=== PATIENT | female | born 1950 | race Hispanic/Latino ===

== ENCOUNTER 2018-08-25 03:22 | Emergency (ER) | payer OTHER, MEDICARE ==
[~2018-08-25 03:22] MED LIST: AMLO2.5T4 PO; HYDR12.530 PO; LISI-617 PO; SERT50TA12 PO
[2018-08-25 04:13] LABS: EOSINOPHILS % (AUTO) 1.2 % (0.0-8.0); HEMATOCRIT 38.9 % (36-48); LYMPHOCYTES % (AUTO) 18.9 % (21.0-51.0); MEAN CORPUSCULAR HEMOGLOBIN 31.6 pg (27.0-33.0); MEAN CORPUSCULAR HGB CONC 34.6 g/dL (32.0-36.0); MEAN CORPUSCULAR VOLUME 91.3 fL (79-99); MONOCYTES % (AUTO) 7.2 % (3.0-13.0); NEUTROPHILS % (AUTO) 71.7 % (40.0-77.0); PLATELET COUNT (AUTO) 222 K/uL (130-400); RED BLOOD CELL COUNT(AUTO) 4.26 MIL/uL (4.00-5.50); RED CELL DISTRIBUTION WIDTH 13.5 % (11.0-15.5); WHITE BLOOD COUNT (AUTO) 6.3 K/uL (4.8-10.8)
[2018-08-25 04:23] LABS: CREATININE 0.9 mg/dL (0.5-1.5)
[2018-08-25 04:27] LABS: ALBUMIN 3.8 g/dL (3.5-5.0); BILIRUBIN,TOTAL 0.2 mg/dL (0.2-1.0); TOTAL PROTEIN, SERUM 7.4 g/dL (6.0-8.3)
== END 2018-08-25 04:51 | disposition home or self-care (01) ==
LOC: EDH 03:22
DX: F41.0 Panic disorder [episodic paroxysmal anxiety] (principal); I10 Essential (primary) hypertension
CPT/HCPCS: 36415; 80053; 84484; 85025; 93005

== ENCOUNTER 2018-11-14 11:08 | Emergency (ER) | payer OTHER, MEDICARE ==
[2018-11-14 11:33] LABS: BASOPHILS % (AUTO) 0.4 % (0.0-5.0); EOSINOPHILS % (AUTO) 2.8 % (0.0-8.0); HEMATOCRIT 43.5 % (36-48); LYMPHOCYTES % (AUTO) 28.2 % (21.0-51.0); MEAN CORPUSCULAR HEMOGLOBIN 31.2 pg (27.0-33.0); MEAN CORPUSCULAR VOLUME 91.9 fL (79-99); MONOCYTES % (AUTO) 9.3 % (3.0-13.0); NEUTROPHILS % (AUTO) 59.3 % (40.0-77.0); NUCLEATED RED BLOOD CELLS 0.1 % (0.0-0.19); PLATELET COUNT (AUTO) 207 K/uL (130-400); RED BLOOD CELL COUNT(AUTO) 4.73 MIL/uL (4.00-5.50); RED CELL DISTRIBUTION WIDTH 13.2 % (11.0-15.5); WHITE BLOOD COUNT (AUTO) 4.9 K/uL (4.8-10.8)
[2018-11-14 11:50] LABS: ALBUMIN 3.8 g/dL (3.5-5.0); BILIRUBIN,TOTAL 0.7 mg/dL (0.2-1.0); CREATININE 0.7 mg/dL (0.5-1.5); POTASSIUM 3.5 mmol/L (3.5-5.1); TOTAL PROTEIN, SERUM 7.8 g/dL (6.0-8.3)
[2018-11-14] MEDS ORDERED: ALPRAZOLAM 0.25 MG TABLET ONE (12:35)
[2018-11-14] MEDS ORDERED: ONDANSETRON HCL 4 MG/2 ML VIAL ONE (12:35)
[2018-11-14] MEDS ORDERED: SODIUM CHLORIDE 0.9% 1000ML 1,000 ML IV ONE (12:38)
[2018-11-14 13:49] LABS: APPEARANCE,URINE Clear (CLEAR); BILIRUBIN,URINE Negative (NEGATIVE); COLOR,URINE Yellow (YELLOW); GLUCOSE, URINE (UA) Negative (NEGATIVE); KETONES,URINE Trace mg/dL (NEGATIVE); LEUKOCYTE ESTERASE ,URINE Small (NEGATIVE); NITRATE,URINE Negative (NEGATIVE); OCCULT BLOOD,URINE Trace (NEGATIVE); PROTEIN,URINE Negative (NEGATIVE)
[2018-11-14 14:01] LABS: BACTERIA,URINE None Seen /HPF (None Seen); RBC,URINE 0-1 /HPF (0-1); SQUAMOUS EPITHELIAL CELL,UR 0-2 /HPF (0-2); WBC,URINE 0-1 /HPF (0-1)
== END 2018-11-14 14:46 | disposition home or self-care (01) ==
LOC: EDH 11:08
DX: R11.2 Nausea with vomiting, unspecified (principal); R19.7 Diarrhea, unspecified; R10.9 Unspecified abdominal pain; F41.9 Anxiety disorder, unspecified; I10 Essential (primary) hypertension; F32.9 Major depressive disorder, single episode, unspecified; Z90.49 Acquired absence of other specified parts of digestive tract
CPT/HCPCS: 36415; 80053; 81001; 83690; 84484; 85025; 93005; 96374; 99285; J2405; J7030

== ENCOUNTER 2018-11-16 09:19 | Emergency (ER) | payer OTHER, MEDICARE ==
[2018-11-16] MEDS ORDERED: ACETAMINOPHEN EXTRA STRENGTH 500 MG TABLET ONE (09:41)
[2018-11-16 09:54] LABS: BASOPHILS % (AUTO) 0.8 % (0.0-5.0); EOSINOPHILS % (AUTO) 1.8 % (0.0-8.0); HEMATOCRIT 41.7 % (36-48); LYMPHOCYTES % (AUTO) 28.5 % (21.0-51.0); MEAN CORPUSCULAR HEMOGLOBIN 31.3 pg (27.0-33.0); MEAN CORPUSCULAR HGB CONC 34.5 g/dL (32.0-36.0); MEAN CORPUSCULAR VOLUME 90.6 fL (79-99); MONOCYTES % (AUTO) 8.5 % (3.0-13.0); NEUTROPHILS % (AUTO) 60.4 % (40.0-77.0); NUCLEATED RED BLOOD CELLS 0.1 % (0.0-0.19); PLATELET COUNT (AUTO) 215 K/uL (130-400); RED CELL DISTRIBUTION WIDTH 13.1 % (11.0-15.5); WHITE BLOOD COUNT (AUTO) 4.8 K/uL (4.8-10.8)
[2018-11-16 10:05] LABS: CREATININE 0.8 mg/dL (0.5-1.5); POTASSIUM 3.5 mmol/L (3.5-5.1)
[2018-11-16 10:06] LABS: INR 1.01 (0.85-1.15); PARTIAL THROMBOPLASTIN TIME 24.4 SEC (26.3-35.5); PROTHROMBIN TIME 10.6 SEC (9.6-11.6)
[2018-11-16 10:10] LABS: ALBUMIN 3.7 g/dL (3.5-5.0); BILIRUBIN,TOTAL 0.5 mg/dL (0.2-1.0); TOTAL PROTEIN, SERUM 7.6 g/dL (6.0-8.3)
== END 2018-11-16 10:55 | disposition home or self-care (01) ==
LOC: EDH 09:19
DX: R51 Headache (principal); R20.2 Paresthesia of skin; F41.1 Generalized anxiety disorder; F32.9 Major depressive disorder, single episode, unspecified; I10 Essential (primary) hypertension; Z90.49 Acquired absence of other specified parts of digestive tract; Z91.14 Patient's other noncompliance with medication regimen; Z79.899 Other long term (current) drug therapy
CPT/HCPCS: 36415; 80053; 82550; 84484; 85025; 85610; 85730; 93005

== ENCOUNTER 2025-01-22 15:17 | Emergency (ER) | payer OTHER, MEDICARE ==
[~2025-01-22] VITALS: Ht 157.5 cm; Wt 91.6 kg
[~2025-01-22 15:17] MED LIST changes: -LISI-617 PO; +LISI5TAB21 PO; +SERT-439 PO; -SERT50TA12 PO
[2025-01-22 15:43] LABS: IMMATURE GRANULOCYTE ABSOLUTE 0.05 K/uL (0-1); NUCLEATED RED BLOOD CELLS 0.0 % (0.0-0.19); PLATELET COUNT (AUTO) 256 K/uL (130-400); RED BLOOD CELL COUNT(AUTO) 4.42 MIL/uL (4.00-5.50); RED CELL DISTRIBUTION WIDTH 12.8 % (11.0-15.5); WHITE BLOOD COUNT (AUTO) 7.7 K/uL (4.8-10.8)
[2025-01-22 15:51] LABS: CREATININE 0.7 mg/dL (0.5-1.0); GLOMERULAR FILTR. RATE CALC 92.0 mL/min (>90); GLUCOSE,RANDOM 105.0 mg/dL (70-105); SODIUM SERUM 138.0 mmol/L (136-145); UREA NITROGEN, BLOOD 17.0 mg/dL (7-18)
--- NOTE | 2025-01-22 16:23 | HMCIMG ---
EXAM: CR Chest, 1 View. CLINICAL HISTORY: VERTIGO COMPARISON: None provided. FINDINGS: LUNGS: There is no mass, infiltrate, or acute pulmonary abnormality. PLEURAL SPACES: No pleural effusion or pneumothorax. MEDIASTINUM: Cardiac size and mediastinal contours within normal limits. BONES: No acute osseous abnormality. IMPRESSION: No acute cardiopulmonary pathology is evident. /[place]
[2025-01-22] MEDS: 0.9%NACL 1000ML 1,000 ML IV ONE (16:34)
--- NOTE | 2025-01-22 17:09 | ERN ---
General Chief Complaint: Hypertension Stated Complaint: ELEVATED PB Time Seen by MD: 15:19 Source: patient History of Present Illness Initial Comments Patient is a 74-year-old female coming in complaining of hypertension that has in his. Per patient she has been feeling off since the morning. She states he has been felt very weak and felt off balance decided to come in for further evaluation. Allergies: Coded Allergies: No Allergy Information Available (Verified Allergy, Unknown, 01/17/15) No Known Drug Allergies (Unverified Allergy, Unknown, 01/22/25) Home Meds Active Scripts Sertraline HCl (Sertraline HCl) 50 Mg Tablet, 50 MG PO DAILY, #30 TAB Prov:LAYNE MICHAELS MD 01/19/15 Reported Medications Hydrochlorothiazide (Hydrochlorothiazide) 12.5 Mg Capsule, 12.5 MG PO DAILY, CAP 01/17/15 Lisinopril (Lisinopril) 5 Mg Tablet, 5 MG PO BID, TAB 01/17/15 Amlodipine Besylate (Amlodipine Besylate) 2.5 Mg Tablet, 2.5 MG PO DAILY, TAB 01/17/15 Past Medical History Past Medical History: High Cholesterol, Hypertension Past Surgical History: None ROS Dictation CONSTITUTIONAL: No chills, no fever, weakness, no diaphoresis, no malaise. HEAD/FACE: No signs of trauma. EENT: No eye pain, no blurred vision, no tearing, no double vision, no ear pain, no ear discharge, no nose pain, no nasal congestion, no throat pain, no throat swelling, no mouth pain. RESPIRATORY: No cough, no orthopnea, no SOB, no stridor, no wheezing. CARDIOVASCULAR: No chest pain, no edema, no palpitations, no syncope. GASTROINTESTINAL/ABDOMINAL: No abdominal pain, no constipation, no diarrhea, no nausea, no vomiting. GENITOURINARY: No abnormal discharge, no dysuria, no frequent urination, no hematuria. No complaints of pain in the genitals. MUSCULOSKELETAL: No back pain, no gout, no joint pain, no joint swelling, no muscle pain, no muscle stiffness, no neck pain. INTEGUMENTARY: No change in color, no change in hair/nails, no dryness, no lesion, no lumps, no rash. NEUROLOGICAL/PSYCH: No anxiety, not depressed, no emotional problem, no headache, no numbness, no pre-existing deficit, no history of seizures, no tremors, no weakness. HEMATOLOGIC/LYMPHATIC: Not anemic, no history of blood clots, no apparent bleeding, no bruising, glands not swollen. All Systems Negative, Except as Noted. Physical Exam Physical Exam Dictation VITAL SIGNS: Reviewed. GENERAL APPEARANCE: Alert, oriented x3, no acute distress, obese. HEAD AND FACE: Non-traumatic. EYES: PERRL, pink conjunctivas, eyelid no trauma, anterior chamber clear. EARS: Pinnas intact and no signs of trauma or erythema. Ear canals clear and no discharge. TMs no erythema. NOSE: No discharge, no bleeding. OROPHARYNX: Mouth normal, teeth no caries, tongue pink. Pharynx clear, no erythema. Tonsils no exudates, no abscesses noted. Mucous membrane moist. NECK: Supple, non-tender, no thyromegaly, no masses, no JVD, no bruits. BREAST: Deferred. CHEST: No tenderness, no crepitus, no paradoxical movement, no retractions. LUNGS: Clear, well-ventilated, symmetric, no rales, no wheezing, no rhonchi, no stridor, good breath sounds bilaterally. HEART: Regular rate, regular rhythm, no murmur, no gallops. VASCULAR: No peripheral edema. ABDOMEN: Soft, positive bowel sounds, nondistended, no guarding, nontender, no rebound, no masses no hepatomegaly, no splenomegaly, no Zhang's sign, no hernias. RECTAL: Deferred. GENITAL: Deferred. NEUROLOGICAL: Normal speech, gross motor function intact, gross sensory function intact. MUSCULOSKELETAL: Neck nontender, full range of motion, back nontender, full range of motion. EXTREMITIES: Nontender, full range of motion. SKIN: Color pink, dry, no turgor, no rash, no lacerations, no abrasions, no contusions. LYMPHATICS: Deferred. Results Laboratory and Microbiology Lab and Micro Result Laboratory Tests Test 01/22/25 15:38 01/22/25 18:06 White Blood Count 7.7 K/uL (4.8-10.8) Red Blood Count 4.42 MIL/uL (4.00-5.50) Hemoglobin 14.1 g/dL (12.0-16.0) Hematocrit 42.0 % (36-48) Mean Corpuscular Volume 95.0 fL (79-99) Mean Corpuscular Hemoglobin 31.9 pg (27.0-33.0) Mean Corpuscular Hemoglobin Concent 33.6 g/dL (32.0-36.0) Red Cell Distribution Width 12.8 % (11.0-15.5) Platelet Count 256 K/uL (130-400) Mean Platelet Volume 9.7 fL (7.5-10.5) Immature Granulocyte % (Auto) 0.7 % (0-1) Neutrophils (%) (Auto) 82.5 % (40.0-77.0) H Lymphocytes (%) (Auto) 12.1 % (21.0-51.0) L Monocytes (%) (Auto) 3.9 % (3.0-13.0) Eosinophils (%) (Auto) 0.3 % (0.0-8.0) Basophils (%) (Auto) 0.5 % (0.0-5.0) Neutrophils # (Auto) 6.3 K/uL (1.8-7.7) Lymphocytes # (Auto) 0.9 K/uL (1.0-4.8) L Monocytes # (Auto) 0.3 K/uL (0.1-1.0) Eosinophils # (Auto) 0.02 K/uL (0.00-0.70) Basophils # (Auto) 0.04 K/uL (0.00-0.20) Absolute Immature Granulocyte (auto 0.05 K/uL (0-1) Nucleated Red Blood Cells 0.0 % (0.0-0.19) Sodium Level 138 mmol/L (136-145) Potassium Level 4.7 mmol/L (3.5-5.1) Chloride Level 103 mmol/L (101-111) Carbon Dioxide Level 27 mmol/L (21-32) Blood Urea Nitrogen 17 mg/dL (7-18) Creatinine 0.7 mg/dL (0.5-1.0) Glomerular Filtration Rate Calc 92 mL/min (>90) Random Glucose 105 mg/dL (70-105) Total Calcium 8.9 mg/dL (8.5-10.1) Troponin I High Sensitivity 8 ng/L (4-50) Urine Color YELLOW (YELLOW) Urine Appearance CLEAR (CLEAR) Urine pH 8.0 (5.0-8.0) Urine Specific [place] 1.015 (1.001-1.031) Urine Protein NEGATIVE mg/dL (NEGATIVE) Urine Glucose (UA) NEGATIVE mg/dL (NEGATIVE) Urine Ketones NEGATIVE mg/dL (NEGATIVE) Urine Occult Blood NEGATIVE (NEGATIVE) Urine Nitrate NEGATIVE (NEGATIVE) Urine Bilirubin NEGATIVE mg/dL (NEGATIVE) Urine Urobilinogen 0.2 mg/dL (0.2-1.0) Urine Leukocyte Esterase NEGATIVE [place]/uL Labs Reviewed?: Yes EKG/XRAY/US/CT/MRI EKG Comment 01/22/2025 time 3:20 p.m. Ventricular rate 65 Sinus rhythm [place] [address] wave elevation or depression X-RAY Comment IMAGING REPORT Signed PATIENT: PAT QUAN MR#: [id number] : 1950 SEX: F AGE: 74 LOCATION: [facility] ORDER 153 STATUS: [facility] REPORT#: [id number] SERVICE [id number] REASON: VERTIGO ORDERING PHYSICIAN: MARSHA SAWYER MD PROCEDURE: CXR1VW - CHEST 1VW EXAM: CR Chest, 1 View. CLINICAL HISTORY: VERTIGO COMPARISON: None provided. FINDINGS: LUNGS: There is no mass, infiltrate, or acute pulmonary abnormality. PLEURAL SPACES: No pleural effusion or pneumothorax. MEDIASTINUM: Cardiac size and mediastinal contours within normal limits. BONES: No acute osseous abnormality. IMPRESSION: No acute cardiopulmonary pathology is evident. /[place] DICTATED BY: ARTEMIO PUGA Jr., MD DATE: 01/22/251722 ELECTRONICALLY SIGNED BY: ARTEMIO PUGA Jr., MD DATE: 01/22/251722 [facility] MDM: Differential diagnosis: Vertigo, dehydration, Rationale: Tests considered and ordered secondary to shared decision making include: Previous outside records reviewed: Old ER visits. Risk of complication and/or morbidity or mortality of patient management: None Medications-Per medication reconciliation Need for hospitalization: Patient does not meet criteria for hospitalization. Need for emergency major/minor surgery: No Patient is a 74-year-old female coming in to be evaluated for weakness and feeli ng episodes of off balance. Patient was hydrated with IV fluids cardiac workup negative for any acute findings. Patient states he feels much better we will be discharged in stable condition with a diagnosis of dehydration. ED Course Orders Procedure Category Date Status Time 12 Lead Ekg Tracing- EKG 01/22/25 Logged Technical 15:27 Cbc With Differential LAB 01/22/25 Complete 15:31 Chest 1vw RAD 01/22/25 Resulted 15:31 0.9%Nacl 1000ml (Ns PHA 01/22/25 Complete 1000ml) 16:00 Troponin I High LAB 01/22/25 Complete Sensitivity 15:31 Urinalysis Profile LAB 01/22/25 Complete 15:31 Basic Metabolic Panel LAB 01/22/25 Complete 15:31 Meclizine Hcl 25 Mg PHA 01/22/25 Complete (Antivert 25 Mg) 16:30 Current Medications Medications (Trade) Dose Ordered Sig/[place] Route PRN Reason Start Time Stop Time Status Last Admin Dose Admin Meclizine HCl (ANTIvert 25 mg) 25 mg ONCE ONCE PO 01/22/25 16:30 01/22/25 16:31 DC 01/22/25 16:34 Sodium Chloride 1,000 ml @ 0 mls/hr ONCE ONCE IV 01/22/25 16:00 01/22/25 16:01 DC 01/22/25 16:34 Vital Signs Date Time Temp Pulse Resp B/P (MAP) Pulse Ox O2 Delivery O2 Flow Rate FiO2 01/22/25 15:25 98.1 89 18 172/77 99 Room Air* 0 21 01/22/25 15:19 98.1 89 18 172/77 98 DX & DISP Disposition: Discharge Departure Impression: Primary Impression: Dehydration Condition: Stable Additional Instructions: FOLLOW-UP WITH PRIMARY CARE PROVIDER IN 1 TO 2 DAYS. TAKE MEDICATIONS DIRECTED HERE IN THE EMERGENCY ROOM. OKAY TO CONTINUE HOME MEDICATIONS UNLESS OTHERWISE DISCUSSED DURING YOUR VISIT IN THE EMERGENCY ROOM TODAY. RETURN TO YOUR NEAREST EMERGENCY ROOM IF SYMPTOMS WORSEN OR IF THERE IS NO IMPROVEMENT. CALL 911 IF YOU NEED IMMEDIATE ASSISTANCE. TAKE TYLENOL [id number] NEEDED AND IF NO CONTRAINDICATIONS ARE PRESENT. INCREASE ORAL HYDRATION. A WOUND CULTURE OR URINE CULTURE WAS ORDERED HERE IN THE EMERGENCY ROOM DEPARTMENT PLEASE FOLLOW-UP WITH PRIMARY CARE PROVIDER AND ADVISE THEM TO GET REPORTS FROM OUR FACILITY. IF YOU HAD ANY RICK WRAP/SPLINTS THAT WERE APPLIED HERE, PLEASE DO NOT REMOVE THEM UNTIL YOU SEE YOUR PRIMARY CARE OR SPECIALTY. Referrals: Referrals: MAR ROA MD (PCP) Time of Disposition: 18:42 MARSHA SAWYER MD Jan 22, 2025 17:09
[2025-01-22 18:34] LABS: APPEARANCE,URINE CLEAR (CLEAR); GLUCOSE, URINE (UA) NEGATIVE (NEGATIVE); LEUKOCYTE ESTERASE ,URINE NEGATIVE Leu/uL (NEGATIVE); NITRATE,URINE NEGATIVE (NEGATIVE); OCCULT BLOOD,URINE NEGATIVE (NEGATIVE)
[2025-01-22 18:35] LABS: ADD UA MICROSCOPIC NO
[2025-01-22 19:15] VITALS: BP 185/73; PULSE 78; RESP 18; TEMP 98.1; O2SAT 98
--- NOTE | 2025-01-22 19:36 | EKG ---
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
== END 2025-01-22 19:20 | disposition home or self-care (01) ==
LOC: EDH 15:17
DX: E86.0 Dehydration (principal); I10 Essential (primary) hypertension; E78.00 Pure hypercholesterolemia, unspecified; Z79.899 Other long term (current) drug therapy
CPT/HCPCS: 99285; 96360; 71045; 96361; 84484; 80048; 85025; 81003; 36415; 93005; J7030